=== PATIENT | female | born 1975 | race African-American/Black ===

== ENCOUNTER 2017-01-07 12:29 | Emergency (ER) | payer OTHER ==
[~2017-01-07] VITALS: Wt 54.6 kg
[2017-01-07] MEDS ORDERED: SODI126M NASAL (13:32)
[2017-01-07] MEDS ORDERED: GUAI-637 PO (13:32)
--- NOTE | 2017-01-07 13:36 | ERD ---
ER Documentation Chief Complaint Chief Complaint SOB X1 WEEK HPI 41-year-old female with history of asthma is complaining of cough and shortness breath 1 week. The cough is nonproductive. Nasal congestion as well. She has been using albuterol inhaler, but felt had not helped. Denies fever or chills. Denies abdominal pain, vomiting, or diarrhea. She stated that she was hospitalized with pneumonia last year, and she thinks that she had pneumonia again. ROS All systems reviewed and are negative except as per history of present illness. Medications Home Meds Active Scripts Guaifenesin* (Robitussin*) 100 Mg/5 Ml Syrup, 200 MG PO Q6H Y for COUGH, #120 ML Prov:ISRAEL BUSTAMANTE. STORE SALES MANAGER 01/07/17 Sodium Chloride (Saline Nasal Mist) 126 Ml Mist, 2 SPRAY NASAL Q2H Y for NASAL CONGESTION, #1 BOTTLE Prov:ISRAEL BUSTAMANTE. STORE SALES MANAGER 01/07/17 Allergies Allergies: Coded Allergies: Codeine (Verified Allergy, Unknown, RASH N/V, 03/27/12) PMhx/Soc History of Surgery: No Anesthesia Reaction: No Hx Neurological Disorder: No Hx Respiratory Disorders: Yes (ASTHMA) Hx Cardiac Disorders: No Hx Psychiatric Problems: No Hx Miscellaneous Medical Probl: No Hx Alcohol Use: No Hx Substance Use: No Hx Tobacco Use: Yes Physical Exam Vitals Vital Signs Date Time Temp Pulse Resp B/P Pulse Ox O2 Delivery O2 Flow Rate FiO2 01/07/17 12:30 98.1 98 20 125/86 100 Physical Exam General: Well-developed, well-nourished, conscious and coherent, in no distress Skin: Warm and dry without rash, good texture and turgor Head: Normocephalic without evidence of trauma Eyes: Sclera and conjunctivae normal; pupils equal, round, and reactive to light; extraocular movements are intact Ears: Canals are patent. Tympanic membranes are clear Nose/Face: Is a mucosa erythematous swollen with clear rhinorrhea. Mouth/throat: Mucous membranes are moist. Posterior pharynx clear without erythema or exudates Neck: Supple without meningismus or adenopathy. Carotids are equal. Trachea midline. No bruits or JVD. O2 sat 100%. Chest: Normal AP diameter. Good expansion without retractions. Nontender. Lungs are clear to auscultate bilaterally with good tidal volume Heart: Regular rate and rhythm. No murmur, rub, or gallops heard Extremities: Full range of motion. Good strength bilaterally. No clubbing, cyanosis, or edema. Peripheral pulses are intact. Sensation intact Neuro: Alert and oriented 4, GCS 15. Cranial nerves grossly intact. Motor and sensory exams nonfocal. Moves all extremities. Speech clear. Gait normal Results 24 hrs PROCEDURE: XR Chest. CLINICAL INDICATION: Cough. TECHNIQUE: Single frontal view. COMPARISON: 03/27/2012. FINDINGS: The lungs are clear. The heart size is normal. There is no pleural effusion. There is no pneumothorax. IMPRESSION: 1. Normal chest radiograph. RPTAT: QQ .Morgan Garcia MD, MD Date Time Electronically viewed and signed by .Morgan Garcia MD, on 01/07/2017 13:41 .R/ CC: ISRAEL BUSTAMANTE STORE SALES MANAGER Procedures/MDM Well-appearing 41-year-old female with history of asthma presented ED with nonproductive cough 1 week. Patient is afebrile, in no respiratory distress. Lungs are clear to auscultate. I doubt that patient has exacerbation, pneumonia or bronchitis. Likely patient's symptoms are result of viral upper respiratory infection. However, patient insists that she has pneumonia. Chest x-ray was obtained. Chest x-ray was negative. Patient appears well, stable for discharge and outpatient management. Medical decision making shared with patient and family. Education provided to patient and family. Patient and family expressed understanding of the plan. Medications on discharge: Saline nasal spray, Robitussin. Follow-up: Primary care provider in 2-3 days or return to ED if worse. Disclaimer: Inadvertent spelling and grammatical errors are likely due to EHR/ dictation software use and do not reflect on the overall quality of patient care. Also, please note that the electronic time recorded on this note does not necessarily reflect the actual time of the patient encounter. Departure Diagnosis: Primary Impression: URI (upper respiratory infection) URI type: acute nasopharyngitis (common cold) Qualified Code: J00 - Acute nasopharyngitis Condition: Stable Patient Instructions: Adult Self-Care for Colds Referrals: [facility] YOU HAVE RECEIVED A MEDICAL SCREENING EXAM AND THE RESULTS INDICATE THAT YOU DO NOT HAVE A CONDITION THAT REQUIRES URGENT TREATMENT IN THE EMERGENCY DEPARTMENT. FURTHER EVALUATION AND TREATMENT OF YOUR CONDITION CAN WAIT UNTIL YOU ARE SEEN IN YOUR DOCTORS OFFICE WITHIN THE NEXT 1-2 DAYS. IT IS YOUR RESPONSIBILITY TO MAKE AN APPOINTMENT FOR FOLOW-UP CARE. IF YOU HAVE A PRIMARY DOCTOR --you should call your primary doctor and schedule an appointment IF YOU DO NOT HAVE A PRIMARY DOCTOR YOU CAN CALL OUR PHYSICIAN REFERRAL HOTLINE AT IF YOU CAN NOT AFFORD TO SEE A PHYSICIAN YOU CAN CHOSE FROM THE FOLLOWING FORMERLY [facility] [address] [facility]. [facility] [address] [facility] [facility] [address] [facility] [address] [facility] [facility] [address] [facility]. [facility] [address] Additional Instructions: Call your primary care doctor TOMORROW for an appointment during the next 2-3 days.See the doctor sooner or return here if your condition worsens before your appointment time. ISRAEL BUSTAMANTE NP Jan 07, 2017 13:36
--- NOTE | 2017-01-07 13:41 | RADRPT ---
PROCEDURE: XR Chest. CLINICAL INDICATION: Cough. TECHNIQUE: Single frontal view. COMPARISON: 03/27/2012. FINDINGS: The lungs are clear. The heart size is normal. There is no pleural effusion. There is no pneumothorax. IMPRESSION: 1. Normal chest radiograph. RPTAT: QQ .Morgan Garcia MD, MD Date Time Electronically viewed and signed by .Morgan Garcia MD, on 01/07/2017 13:41 .R/
== END 2017-01-07 14:34 | disposition home or self-care (01) ==
LOC: FTE 12:29
DX: J00 Acute nasopharyngitis [common cold] (principal); Z87.891 Personal history of nicotine dependence
CPT/HCPCS: 71010; Z7502